=== PATIENT | female | born 1990 | race African-American/Black ===

== ENCOUNTER 2016-11-15 20:55 | Emergency (ER) | payer OTHER ==
[~2016-11-15] VITALS: Ht 165.1 cm; Wt 74.8 kg
[~2016-11-15 20:55] MED LIST: ACID CONTROL20 MG; CLARITIN-D 121 EACH PO; COLACE 100 MG100 MG PO; DAYTIME COLD PO; FLEXERIL PO; FLONASE 0.05%50 MCG NASAL; HYDROCHLOROTHIA25 M1; HYDROCODONE-ACE15 ML PO; IBUPROFEN 600600 M1 PO; IBUPROFEN 800800 M1 PO; IROSPAN 24/6 T1 EACH PO; KEFLEX500 MG PO; LANOLIN56 GM; LEVOTHYROXIN0.137 M1; LOPRESSOR25; NAPROSYN500 MG PO; NOHOMEMEDICATIONS; NORCO 5-325 TA1 EACH PO; PERMETHRIN60 GM TOP; PHENERGAN 25 MG25 M1 PO; TESSALON PERLE100 MG PO; TRAMADOL 50 MG50 MG PO; ZPAK PO
[2016-11-15 21:03] VITALS: BP 142/83
[2016-11-15] MEDS ORDERED: NAPROSYN500 MG PO (21:54)
== END 2016-11-15 22:02 | disposition home or self-care (01) ==
LOC: ER 20:55
DX: M79.672 Pain in left foot (principal)

== ENCOUNTER 2017-02-09 08:41 | Emergency (ER) | payer OTHER ==
[~2017-02-09] VITALS: Ht 165.1 cm; Wt 72.6 kg
[~2017-02-09 08:41] MED LIST changes: +BENADRYL25 MG PO
[2017-02-09 08:45] VITALS: BP 137/86
[2017-02-09] MEDS ORDERED: NORCO 5-325 TA1 EACH PO (09:02)
== END 2017-02-09 09:04 | disposition home or self-care (01) ==
LOC: ER 08:41
DX: M54.5 Low back pain (principal)

== ENCOUNTER 2017-04-01 10:09 | Emergency (ER) | payer OTHER ==
[~2017-04-01] VITALS: Ht 165.1 cm; Wt 72.6 kg
[2017-04-01 10:37] LABS: URINE BILIRUBIN NEGATIVE (Negative); URINE BLOOD NEGATIVE (Negative); URINE COLOR YELLOW; URINE GLUCOSE-RANDOM* NEGATIVE (Negative); URINE KETONES NEGATIVE (Negative); URINE NITRITE NEGATIVE (Negative); URINE PROTEIN (DIPSTICK) 1+ (Negative); URINE SPECIFIC GRAVITY 1.025 (1.003-1.035); URINE UROBILINOGEN 0.2 E.U./dl (0.2-1.0)
[2017-04-01 10:47] LABS: AMORPHOUS URATES Moderate /LPF (None Seen); BACTERIA 1-9 Few /HPF (None Seen); SQUAMOUS 4-10 Moderate /LPF (0-3); URINE RBC None Seen /HPF (0-2); URINE WBC None Seen /HPF (0-5)
[2017-04-01] MEDS ORDERED: NORCO 5-325 TA1 EACH PO (11:31)
[2017-04-01] MEDS ORDERED: IBUPROFEN 600600 M1 PO (11:31)
[2017-04-01] MEDS ORDERED: KEFLEX500 MG PO (11:35)
[2017-04-01 12:10] VITALS: BP 142/86
== END 2017-04-01 12:10 | disposition home or self-care (01) ==
LOC: ER 10:09
PROVIDERS: Nurse Practitioner
DX: S01.81XA Laceration without foreign body of other part of head, initial encounter (principal); S02.2XXA Fracture of nasal bones, initial encounter for closed fracture; M54.5 Low back pain; Y00.XXXA Assault by blunt object, initial encounter; Y93.89 Activity, other specified; Y92.89 Other specified places as the place of occurrence of the external cause; Y99.8 Other external cause status

== ENCOUNTER 2018-04-11 17:08 | Emergency (ER) | payer OTHER ==
[~2018-04-11] VITALS: Ht 165.1 cm; Wt 72.6 kg
[2018-04-11] MEDS ORDERED: MOBIC15 MG PO (19:23)
[2018-04-11] MEDS ORDERED: KEFLEX500 M1 PO (20:00)
[2018-04-11 20:42] VITALS: BP 124/68
== END 2018-04-11 20:28 | disposition home or self-care (01) ==
LOC: ER 17:08
DX: S91.332A Puncture wound without foreign body, left foot, initial encounter (principal); W01.0XXA Fall on same level from slipping, tripping and stumbling without subsequent striking against object, initial encounter; Y93.89 Activity, other specified; Y92.89 Other specified places as the place of occurrence of the external cause; Y99.8 Other external cause status

== ENCOUNTER 2019-12-27 05:23 | Emergency (ER) | payer OTHER ==
[~2019-12-27] VITALS: Ht 165.1 cm; Wt 79.4 kg
[~2019-12-27 05:23] MED LIST changes: +KEFLEX500 M1 PO; +MOBIC15 MG PO
[2019-12-27] MEDS ORDERED: PNV 29-1 TABLE1 EACH PO (05:28)
[2019-12-27 06:10] LABS: ABSOLUTE NEUTROPHILS 8.5 thou/uL (1.4-8.2); BASOPHILS 1.4 % (0.0-2.0); EOSINOPHILS 1.8 % (0.0-3.0); HEMOGLOBIN 12.4 gm/dL (12.0-15.0); MCHC 33.7 g/dL (28.0-37.0); MCV 89.1 fL (80.0-100.0); MONOCYTES 7.5 % (1.0-8.0); PLATELET COUNT 356 thou/uL (150-400); POLYS 65.3 % (36.0-66.0); RBC 4.15 mil/uL (4.20-5.00); RDW 12.9 % (10.5-14.5)
[2019-12-27 06:39] LABS: URINE BILIRUBIN NEGATIVE (Negative); URINE BLOOD NEGATIVE (Negative); URINE CLARITY CLEAR; URINE COLOR YELLOW; URINE GLUCOSE-RANDOM* NEGATIVE (Negative); URINE KETONES NEGATIVE (Negative); URINE LEUKOCYTES-REFLEX NEGATIVE (Negative); URINE NITRITE-REFLEX NEGATIVE (Negative); URINE PROTEIN (DIPSTICK) NEGATIVE (Negative); URINE SPECIFIC GRAVITY 1.025 (1.005-1.035); URINE UROBILINOGEN 0.2 E.U./dl (0.2-1.0)
[2019-12-27 06:40] LABS: ALBUMIN 3.4 g/dL (3.4-5.0); CALCIUM 8.7 mg/dL (8.5-10.1); CREATININE 0.7 mg/dL (0.6-1.0); POTASSIUM 4.1 mmol/L (3.5-5.1); TOTAL BILIRUBIN 0.2 mg/dL (0.2-1.0); TOTAL PROTEIN 6.6 g/dL (6.4-8.2)
[2019-12-27 07:00] VITALS: BP 153/86
== END 2019-12-27 07:00 | disposition home or self-care (01) ==
LOC: ER 05:23
PROVIDERS: Emergency Medicine
DX: O46.91 Antepartum hemorrhage, unspecified, first trimester (principal); O26.891 Other specified pregnancy related conditions, first trimester; M41.9 Scoliosis, unspecified; M54.5 Low back pain; Z3A.01 Less than 8 weeks gestation of pregnancy; Z79.899 Other long term (current) drug therapy

== ENCOUNTER 2020-02-20 16:48 | Emergency (ER) | payer OTHER ==
[~2020-02-20] VITALS: Ht 165.1 cm; Wt 90.7 kg
[~2020-02-20 16:48] MED LIST changes: +PNV 29-1 TABLE1 EACH PO
[2020-02-20 17:45] LABS: ABSOLUTE NEUTROPHILS 8.9 thou/uL (1.4-8.2); BASOPHILS 1.1 % (0.0-2.0); EOSINOPHILS 1.1 % (0.0-3.0); HEMATOCRIT 36.2 % (37.0-47.0); HEMOGLOBIN 12.1 gm/dL (12.0-15.0); LYMPHOCYTES 24.1 % (24.0-44.0); MCHC 33.5 g/dL (28.0-37.0); MCV 89.5 fL (80.0-100.0); MONOCYTES 5.2 % (1.0-8.0); PLATELET COUNT 375 thou/uL (150-400); POLYS 68.5 % (36.0-66.0); RBC 4.05 mil/uL (4.20-5.00); RDW 13.1 % (10.5-14.5)
[2020-02-20 17:48] LABS: CREATININE 0.8 mg/dL (0.6-1.0); POTASSIUM 3.7 mmol/L (3.5-5.1)
[2020-02-20 18:49] LABS: URINE BILIRUBIN NEGATIVE (Negative); URINE BLOOD NEGATIVE (Negative); URINE CLARITY CLEAR; URINE COLOR YELLOW; URINE GLUCOSE-RANDOM* NEGATIVE (Negative); URINE KETONES NEGATIVE (Negative); URINE NITRITE-REFLEX NEGATIVE (Negative); URINE PROTEIN (DIPSTICK) NEGATIVE (Negative); URINE UROBILINOGEN 0.2 E.U./dl (0.2-1.0)
[2020-02-20 18:53] LABS: URINE LEUKOCYTES-REFLEX 2+ (Negative)
[2020-02-20 19:31] LABS: CASTS None Seen /LPF (None Seen); CRYSTALS None Seen /LPF (None Seen); MUCUS 0-3 Light strn/LPF (None Seen); SQUAMOUS 4-10 Moderate /LPF (0-3); URINE RBC 0-2 Rare /HPF (0-2); URINE WBC-REFLEX 6-15 Few /HPF (0-5)
[2020-02-20] MEDS ORDERED: FLAGYL500 M1 PO (20:25)
[2020-02-20] MEDS ORDERED: ZOFRAN ODT4 MG DISSOLVE (20:25)
[2020-02-20] MEDS ORDERED: NORCO 5-325 TA1 EAC2 PO (20:25)
[2020-02-20] MEDS ORDERED: KEFLEX500 M1 PO (20:43)
[2020-02-20 21:04] VITALS: BP 122/72
== END 2020-02-20 21:05 | disposition home or self-care (01) ==
LOC: ER 16:48
PROVIDERS: Physician Assistant
DX: O9A.212 Injury, poisoning and certain other consequences of external causes complicating pregnancy, second trimester (principal); S39.012A Strain of muscle, fascia and tendon of lower back, initial encounter; N39.0 Urinary tract infection, site not specified; A59.01 Trichomonal vulvovaginitis; Z79.899 Other long term (current) drug therapy; Z3A.14 14 weeks gestation of pregnancy; X50.1XXA Overexertion from prolonged static or awkward postures, initial encounter; Y93.89 Activity, other specified; Y92.89 Other specified places as the place of occurrence of the external cause; Y99.8 Other external cause status

== ENCOUNTER 2021-01-28 10:33 | Emergency (ER) | payer OTHER ==
[~2021-01-28] VITALS: Ht 165.1 cm; Wt 77.1 kg
[~2021-01-28 10:33] MED LIST changes: +FLAGYL500 M1 PO; +NORCO 5-325 TA1 EAC2 PO; +ZOFRAN ODT4 MG DISSOLVE
[2021-01-28 10:35] VITALS: BP 143/81
[2021-01-28] MEDS ORDERED: MOBIC7.5 MG PO (11:20)
[2021-01-28] MEDS ORDERED: TESSALON PERLE100 MG PO (11:20)
== END 2021-01-28 11:30 | disposition home or self-care (01) ==
LOC: ER 10:33
DX: U07.1 COVID-19 (principal); R05 Cough; M41.9 Scoliosis, unspecified

== ENCOUNTER 2021-01-30 19:47 | Emergency (ER) | payer OTHER ==
[~2021-01-30] VITALS: Ht 165.1 cm; Wt 77.1 kg
[~2021-01-30 19:47] MED LIST changes: +MOBIC7.5 MG PO
[2021-01-30 22:09] LABS: ABSOLUTE NEUTROPHILS 4.4 thou/uL (1.4-8.2); BASOPHILS 0.9 % (0.0-2.0); HEMOGLOBIN 12.5 gm/dL (12.0-15.0); LYMPHOCYTES 25.3 % (24.0-44.0); MCH 29.6 pg (26.0-34.0); MCHC 33.8 g/dL (28.0-37.0); MCV 87.5 fL (80.0-100.0); PLATELET COUNT 277 thou/uL (150-400); POLYS 63.8 % (36.0-66.0); RBC 4.23 mil/uL (4.20-5.00); RDW 14.7 % (10.5-14.5); WBC 6.8 thou/uL (4.0-11.0)
[2021-01-30 22:22] LABS: ANION GAP 10 mmol/L (7-16); BUN 13 mg/dL (7-18); CALCIUM 8.1 mg/dL (8.5-10.1); CHLORIDE 105 mmol/L (98-107); CO2 25 mmol/L (21-32); CREATININE 0.9 mg/dL (0.6-1.0); GLUCOSE 100 mg/dL (74-106); SODIUM 140 mmol/L (136-145)
[2021-01-30 22:32] LABS: ALBUMIN 3.4 g/dL (3.4-5.0); SGOT 17 U/L (15-37); SGPT 19 U/L (30-65); TOTAL BILIRUBIN 0.2 mg/dL (0.2-1.0); TOTAL PROTEIN 7.1 g/dL (6.4-8.2); TROPONIN-I <0.06 ng/mL (<0.06)
[2021-01-30 23:09] VITALS: BP 137/84
--- NOTE | 2021-01-31 09:54 | EKG ---
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
== END 2021-01-30 23:10 | disposition left against medical advice (07) ==
LOC: ER 19:47
PROVIDERS: Nurse Practitioner Family
DX: U07.1 COVID-19 (principal); Z79.899 Other long term (current) drug therapy

== ENCOUNTER → 2021-02-05 | Emergency (ER) | payer OTHER ==
[~2021-02-05] MED LIST changes: +MEDROLDOSEPACK PO; +PROAIR HFA8.5 GM INH
[2021-02-05 12:34] VITALS: BP 129/92
== END ==
LOC: ER 12:12
DX: U07.1 COVID-19 (principal)

== ENCOUNTER 2021-07-01 10:06 | Emergency (ER) | payer OTHER ==
[~2021-07-01] VITALS: Ht 165.1 cm; Wt 77.1 kg
[2021-07-01 10:09] VITALS: BP 141/90
--- NOTE | 2021-07-02 07:17 | EKG ---
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
== END 2021-07-01 11:40 | disposition home or self-care (01) ==
LOC: ER 10:06
PROVIDERS: Student in an Organized Health Care Education/Training Program
DX: J06.9 Acute upper respiratory infection, unspecified (principal); Z20.822 Contact with and (suspected) exposure to COVID-19; M41.9 Scoliosis, unspecified